=== PATIENT | male | born 1955 | race Caucasian/White ===

== ENCOUNTER → 2016-12-31 | Day surgery (SDC) | payer SELFPAY ==
[~2016-12-31] MED LIST: ALDACTONE50 MG PO; BENADRYL25 MG PO; COLACE100 MG PO; CYMBALTA60 MG PO; FLOMAX0.4 MG PO; FOLIC ACID1 MG PO; K-TAB ER20 MEQ PO; LAMICTAL25 MG PO; LASIX40 MG PO; LYRICA 50MG CAP50 MG PO; MELATONIN5 MG PO; NEURONTIN300 MG PO; NICOTINE PATCH1 EAC4 TRANS; PRILOSEC20 MG PO; PROAIR HFA8.5 GM INH; SLEEP AID50 MG PO; SPIRIVA HANDIHA1 KIT INH; SYMBICORT 16010.2 GM INH; THIAMINE HCL100 MG PO; TREXAN (REVIA)50 MG PO; TYLENOL325 MG PO; XANAX1 MG PO; ZYLOPRIM300 MG PO
== END | disposition disaster alternative care site (69) ==
LOC: GPOC 12-30 09:00 → GEND 07:52 → EDSTATUS 08:00 → GPOC 08:00
DX: Z12.11 Encounter for screening for malignant neoplasm of colon (principal); K74.60 Unspecified cirrhosis of liver; Z53.9 Procedure and treatment not carried out, unspecified reason; I10 Essential (primary) hypertension; F41.9 Anxiety disorder, unspecified; F32.9 Major depressive disorder, single episode, unspecified; Z98.890 Other specified postprocedural states
CPT/HCPCS: J7030

== ENCOUNTER → 2017-01-01 | Outpatient (CLI) | payer SELFPAY ==
[~2017-01-01] VITALS: Ht 180.3 cm; Wt 91.1 kg
--- NOTE | ~2017-01-01 | OR ---
PATIENT'S NAME: NOAM MEMBRENO [facility] AGE: 61 Y [address] ROOM: [place] [address] LOCATION: [facility] ADMIT DATE: 01/01/2017 OR/Procedure Report DISCHARGE DATE: FAMILY PHYSICIAN: J Luis Ruiz ATTENDING PHYSICIAN: SANTIAGO LOMELI (GASTRO) SURGEON: Tal Lomeli MD CORONER TECHNICIAN: DATE OF PROCEDURE: 01/01/2017 PROCEDURES: Esophagogastroduodenoscopy. INDICATION: Hepatitis C, screening for esophageal varices. MEDICATIONS: Please see anesthesiology record for details. CONSENT: The risks/benefits/alternatives were discussed and the patient or his power of deputy prosecuting attorney expressed understanding and agreed to proceed. Informed consent was obtained and placed in the chart. Time-out was completed prior to starting the procedure. PROCEDURE: Patient was placed in the left lateral decubitus position. One- lead EKG monitoring was used along with intermittent blood pressure monitoring and pulse oximetry. Bite block was placed in the patient's mouth. The above medications were given and titrated to response. Once adequate sedation was completed, the endoscope was passed through the patient's mouth into the posterior oropharynx. The endoscope was then passed into the esophagus, stomach and duodenal bulb. The duodenum was examined through the third portion. The endoscope was then withdrawn into the stomach. In the stomach, retroflexion was completed. The scope was then straightened and withdrawn from the patient. The patient tolerated the procedure well. There were no complications. FINDINGS: 1. A few small white patches were seen in the esophagus. This likely represents early Aan, very mild. 2. Normal stomach. 3. Normal duodenum. ASSESSMENT AND PLAN: Hepatitis C. No evidence of portal gastropathy or varices on exam today. There were a few small white patches in the esophagus. This could represent early Ana. Sometimes these changes will go away by themselves. As the patient is asymptomatic, I would hold off on any treatment at this time. No evidence of Linder's esophagus. Follow up in clinic for the treatment of hepatitis C. We will proceed with screening colonoscopy. PATIENT'S NAME: NOAM MEMBRENO [facility] AGE: 61 Y [address] ROOM: [place] [address] LOCATION: [facility] ADMIT DATE: 01/01/2017 OR/Procedure Report DISCHARGE DATE: FAMILY PHYSICIAN: J Luis Ruiz ATTENDING PHYSICIAN: SANTIAGO LOMELI (GASTRO) J MD LOYD HENDRICKS/modl /[id number] d: 01/01/17 1445 t: 02/06/17 0842, OPERATIVE SUMMARY
--- NOTE | ~2017-01-01 | OR ---
PATIENT'S NAME: NOAM MEMBRENO [facility] AGE: 61 Y [address] ROOM: [place] [address] LOCATION: [facility] ADMIT DATE: 01/01/2017 OR/Procedure Report DISCHARGE DATE: FAMILY PHYSICIAN: J Luis Ruiz ATTENDING PHYSICIAN: SANTIAGO LOMELI (GASTRO) SURGEON: Tal Lomeli MD INDEPENDENT JEWELER: DATE OF PROCEDURE: 01/01/2017 PROCEDURES: Colonoscopy with polypectomy. INDICATION: Screening. MEDICATIONS: Please see anesthesiology record for details. CONSENT: The risks/benefits/alternatives were discussed and the patient or his power of contracts attorney expressed understanding and agreed to proceed. Informed consent was obtained and placed on the chart. Time-out was completed prior to starting the procedure. PROCEDURE: Patient was placed in the left lateral decubitus position. One lead EKG monitoring was used along with intermittent blood pressure monitoring and pulse oximetry. The above medications were given and titrated to response. Once adequate sedation was completed, rectal exam was performed. The colonoscope was then passed through the rectum, into the sigmoid colon. The scope was then passed through the descending, transverse and ascending colon. The scope was then passed into the cecum. The cecum was identified by the ileocecal valve and appendiceal orifice. The scope was then withdrawn. On withdrawal, the mucosa of the colon was examined. In the rectum, retroflexion was completed. The scope was then withdrawn from the patient. The patient tolerated the procedure well. There were no complications. SUMMARY OF FINDINGS: 1. Descending colon polyp, 5 mm, sessile, removed using snare without cautery. 2. Descending colon polyp, 2 mm, sessile removed using biopsy forceps. 3. Poor prep in several areas of the colon where stool could not be suctioned due to debris. I was able to evaluate for any large lesions. ASSESSMENT AND PLAN: Screening colonoscopy: The patient had 2 polyps removed on exam today. Unfortunately, there were a few areas where I could not evaluate for small polyps. Recommend next colonoscopy in 5 years. PATIENT'S NAME: NOAM MEMBRENO [facility] AGE: 61 Y [address] ROOM: [place] [address] LOCATION: [facility] ADMIT DATE: 01/01/2017 OR/Procedure Report DISCHARGE DATE: FAMILY PHYSICIAN: J Luis Ruiz ATTENDING PHYSICIAN: SANTIAGO LOMELI (GASTRO) J YAMIL LOMELI MD JRT/modl /[id number] d: 01/01/17 1500 t: 02/06/17 0845, OPERATIVE SUMMARY
== END | disposition disaster alternative care site (69) ==
LOC: GOPP 07:00
PROC: 0DJ08ZZ Inspection of Upper Intestinal Tract, Via Natural or Artificial Opening Endoscopic (ICD-10-PCS; principal; 2017-01-01)
PROC: 0DBH8ZZ Excision of Cecum, Via Natural or Artificial Opening Endoscopic (ICD-10-PCS; 2017-01-01)
DX: K74.60 Unspecified cirrhosis of liver (principal); D12.4 Benign neoplasm of descending colon
CPT/HCPCS: J7030